=== PATIENT | male | born 1990 | race Two or more races ===

== ENCOUNTER → 2017-07-18 | Outpatient (REF) | payer OTHER | LOC: M LAB REF 13:12 | PROVIDERS: ATTEND Physician Assistant | DX: J02.9 Acute pharyngitis, unspecified (principal) ==

== ENCOUNTER → 2017-07-24 | Outpatient (REF) | payer OTHER | LOC: M LAB REF 18:52 | PROVIDERS: ATTEND Physician Assistant | DX: J02.9 Acute pharyngitis, unspecified (principal) ==

== ENCOUNTER 2018-10-05 20:02 | Inpatient (IN) | payer MEDICAID, OTHER ==
[2018-10-05 20:45] LABS: HEMOGLOBIN 14.4 g/dl (13.5-17.5); MEAN CORPUSCULAR HEMOGLOBIN 26.3 pg (27.0-33.0); MEAN CORPUSCULAR VOLUME 82.3 fl (80.0-96.0); PLATELET COUNT, AUTOMATED 209 10^3/uL (150-450); RED BLOOD COUNT 5.47 10^6/uL (4.30-6.10); RED CELL DISTRIBUTION WIDTH 12.5 % (11.5-14.5); WHITE BLOOD COUNT 9.7 10^3/uL (4.0-10.0)
[2018-10-05 21:14] LABS: ACETAMINOPHEN LEVEL < 2.0 UG/ML (10.0-30.0); ALBUMIN 4.2 GM/DL (3.2-5.2); ALKALINE PHOSPHATASE 79 U/L (45-117); ALT/SGPT 22 U/L (12-78); ANION GAP 7 MEQ/L (8-16); AST/SGOT 19 U/L (7-37); BILIRUBIN,DIRECT 0.1 MG/DL (0.0-0.2); BILIRUBIN,TOTAL 0.3 MG/DL (0.2-1.0); BLOOD UREA NITROGEN 15 MG/DL (7-18); CALCIUM LEVEL 8.8 MG/DL (8.5-10.1); CARBON DIOXIDE LEVEL 29 MEQ/L (21-32); CHLORIDE LEVEL 105 MEQ/L (98-107); ETHYL ALCOHOL (ETHANOL) 0.004 % (0.000-0.010); GLOMERULAR FILTRATION RATE > 60.0 (>60); GLUCOSE, FASTING 79 MG/DL (70-100); POTASSIUM SERUM 4.1 MEQ/L (3.5-5.1); SALICYLATE LEVEL 3.3 MG/DL (5.0-30.0); SODIUM LEVEL 141 MEQ/L (136-145); THYROID STIMULATING HORMONE 0.727 uIU/ML (0.358-3.740); TOTAL PROTEIN 7.7 GM/DL (6.4-8.2)
[2018-10-05 21:16] LABS: AMPHETAMINES LEVEL URINE NEGATIVE (NEGATIVE); BARBITURATES URINE NEGATIVE (NEGATIVE); BENZODIAZEPINES URINE NEGATIVE (NEGATIVE); CANNABINOIDS URINE POSITIVE (NEGATIVE); COCAINE METABOLITE URINE NEGATIVE (NEGATIVE); METHADONE URINE NEGATIVE (NEGATIVE); OPIATES URINE NEGATIVE (NEGATIVE); PHENCYCLIDINE URINE NEGATIVE (NEGATIVE)
[2018-10-05] MEDS ORDERED: ACETAMINOPHEN TAB 650MG DOSE (2X325MG) PO (22:30)
[2018-10-05] MEDS ORDERED: MAALOX 30 ML SUSP *UDC PO (22:30)
[2018-10-05] MEDS ORDERED: MOM 30ML SUSPENSION UDC PO (22:30)
[2018-10-06] MEDS: traZODone 50 MG TAB PO ×2 (00:50→21:18)
[2018-10-06] MEDS: buPROPion **XL** TABLET 150MG (WELLBUTRIN XL) PO (12:32)
[2018-10-06] MEDS: GABAPENTIN 100 MG CAP PO ×2 (15:30→21:18)
[2018-10-06] MEDS: DIVALPROEX 500MG *ER* TAB PO (21:18)
[2018-10-07] MEDS: GABAPENTIN 100 MG CAP PO ×3 (08:15→21:07)
[2018-10-07] MEDS: buPROPion **XL** TABLET 150MG (WELLBUTRIN XL) PO (08:16)
[2018-10-07] MEDS: diphenhydrAMINE CREAM 30GM TOP (10:04)
[2018-10-07] MEDS: DIVALPROEX 250MG *ER* TAB PO (21:07)
[2018-10-07] MEDS: MIRTAZAPINE 15 MG TAB PO (21:08)
[2018-10-08] MEDS: buPROPion (WELLBUTRIN SR) 100 MG SR TAB PO (08:54)
[2018-10-08] MEDS: buPROPion **XL** TABLET 150MG (WELLBUTRIN XL) PO (08:54)
[2018-10-08] MEDS: DIVALPROEX 250MG *ER* TAB PO ×2 (08:54→20:30)
[2018-10-08] MEDS: GABAPENTIN 100 MG CAP PO ×3 (08:54→20:30)
[2018-10-08] MEDS: diphenhydrAMINE CREAM 30GM TOP ×2 (08:56→20:32)
[2018-10-08] MEDS: MIRTAZAPINE 15 MG TAB PO (20:30)
[2018-10-09] MEDS: buPROPion **XL** TABLET 150MG (WELLBUTRIN XL) PO (08:35)
[2018-10-09] MEDS: buPROPion (WELLBUTRIN SR) 100 MG SR TAB PO (08:35)
[2018-10-09] MEDS: GABAPENTIN 100 MG CAP PO ×3 (08:35→20:22)
[2018-10-09] MEDS: DIVALPROEX 250MG *ER* TAB PO ×2 (08:35→20:25)
[2018-10-09] MEDS: diphenhydrAMINE CREAM 30GM TOP ×2 (08:37→20:25)
[2018-10-09] MEDS: MIRTAZAPINE 15 MG TAB PO (20:25)
[2018-10-10] MEDS: buPROPion (WELLBUTRIN SR) 100 MG SR TAB PO (08:12)
[2018-10-10] MEDS: DIVALPROEX 250MG *ER* TAB PO ×2 (08:12→20:28)
[2018-10-10] MEDS: buPROPion **XL** TABLET 150MG (WELLBUTRIN XL) PO (08:12)
[2018-10-10] MEDS: GABAPENTIN 100 MG CAP PO ×3 (08:12→20:28)
[2018-10-10] MEDS: diphenhydrAMINE CREAM 30GM TOP ×2 (08:13→20:30)
[2018-10-10] MEDS: QUEtiapine FUMARATE 50 MG TAB PO (12:55)
[2018-10-10] MEDS: MIRTAZAPINE 15 MG TAB PO (20:28)
[2018-10-11] MEDS: GABAPENTIN 100 MG CAP PO ×3 (08:51→20:07)
[2018-10-11] MEDS: buPROPion (WELLBUTRIN SR) 100 MG SR TAB PO (08:52)
[2018-10-11] MEDS: DIVALPROEX 250MG *ER* TAB PO ×2 (08:52→20:07)
[2018-10-11] MEDS: buPROPion **XL** TABLET 150MG (WELLBUTRIN XL) PO (08:52)
[2018-10-11] MEDS: diphenhydrAMINE CREAM 30GM TOP ×2 (08:53→20:07)
[2018-10-11] MEDS ORDERED: PILL CRUSHER/CUTTER 1 EACH XX (13:30)
[2018-10-11] MEDS: MIRTAZAPINE 15 MG TAB PO (20:07)
[2018-10-11] MEDS: LORazepam 1 MG TAB PO (21:53)
[2018-10-12] MEDS: buPROPion **XL** TABLET 150MG (WELLBUTRIN XL) PO (08:21)
[2018-10-12] MEDS: GABAPENTIN 100 MG CAP PO ×3 (08:21→20:29)
[2018-10-12] MEDS: buPROPion (WELLBUTRIN SR) 100 MG SR TAB PO (08:21)
[2018-10-12] MEDS: MIRTAZAPINE 15 MG TAB PO (20:29)
[2018-10-13] MEDS: GABAPENTIN 100 MG CAP PO (08:44)
[2018-10-13] MEDS: buPROPion **XL** TABLET 150MG (WELLBUTRIN XL) PO (08:44)
[2018-10-13] MEDS: buPROPion (WELLBUTRIN SR) 100 MG SR TAB PO (08:44)
== END 2018-10-13 11:10 | disposition home or self-care (01) | DRG 753 ==
LOC: M PSY 23:51 → M ED 20:02 → M ED INP 22:16
DX: F31.9 Bipolar disorder, unspecified (principal); R45.851 Suicidal ideations; F41.1 Generalized anxiety disorder; L25.9 Unspecified contact dermatitis, unspecified cause

== ENCOUNTER → 2018-11-02 | Outpatient (REF) | payer MEDICAID ==
[~2018-11-02] MED LIST: ABIL20TA5 PO; ARIP5TA PO; BENA25CA4 PO; BUPR10TASR PO; BUPR150T3 PO; DIPHCR TOP; GABA-1171 PO; MIRT15TA3 PO
[2018-11-02 11:47] LABS: BASO % 0.3 % (0.0-1.0); EOS # 0.3 10^3/uL (0.0-0.50); EOS % 3.5 % (0.0-3.0); HEMATOCRIT 45.6 % (42.0-52.0); HEMOGLOBIN 14.4 g/dl (13.5-17.5); LYMPH # 2.5 10^3/uL (1.5-6.5); LYMPH % 32.8 % (24.0-44.0); MEAN CORPUSCULAR HEMOGLOBIN 26.6 pg (27.0-33.0); MEAN CORPUSCULAR HGB CONC 31.6 g/dl (32.0-36.5); MEAN CORPUSCULAR VOLUME 84.3 fl (80.0-96.0); MONO # 0.7 10^3/uL (0.0-0.8); MONO % 9.4 % (0.0-5.0); NEUTROPHILS # 4.1 10^3/uL (1.8-7.7); NEUTROPHILS % 53.7 % (36.0-66.0); PLATELET COUNT, AUTOMATED 218 10^3/uL (150-450); RED BLOOD COUNT 5.41 10^6/uL (4.30-6.10); WHITE BLOOD COUNT 7.6 10^3/uL (4.0-10.0)
[2018-11-02 12:14] LABS: ALBUMIN 3.7 GM/DL (3.2-5.2); ALT/SGPT 26 U/L (12-78); BILIRUBIN,TOTAL 0.3 MG/DL (0.2-1.0); BLOOD UREA NITROGEN 15 MG/DL (7-18); CALCIUM LEVEL 8.6 MG/DL (8.5-10.1); CARBON DIOXIDE LEVEL 28 MEQ/L (21-32); CHLORIDE LEVEL 104 MEQ/L (98-107); CHOLESTEROL LEVEL 194 MG/DL (<200); CHOLESTEROL RISK RATIO 2.939 (<5); CREATININE FOR GFR 1.21 MG/DL (0.70-1.30); GLOMERULAR FILTRATION RATE > 60.0 (>60); GLUCOSE, FASTING 93 MG/DL (70-100); HDL CHOLESTEROL 66 MG/DL (>40); LDL CHOLESTEROL 112 MG/DL (<100); NON-HDL-C 128 MG/DL; POTASSIUM SERUM 4.1 MEQ/L (3.5-5.1); SODIUM LEVEL 140 MEQ/L (136-145); TOTAL 25(OH) VITAMIN D 24.5 NG/ML (30.0-100.0); TOTAL PROTEIN 7.9 GM/DL (6.4-8.2); TRIGLYCERIDES LEVEL 78 MG/DL (<150)
[2018-11-02 13:56] LABS: HEMOGLOBIN A1c 5.6 %
== END ==
LOC: M LAB REF 11:32
PROVIDERS: ATTEND Nurse Practitioner Family
DX: Z13.9 Encounter for screening, unspecified (principal)

== ENCOUNTER → 2018-11-21 | Outpatient (CLI) | payer OTHER ==
[2018-11-21 09:11] LABS: CHOLESTEROL RISK RATIO 2.208 (<5)
== END ==
LOC: M LAB 08:16
PROVIDERS: ATTEND Nurse Practitioner Psychiatric/Mental Health
DX: F31.9 Bipolar disorder, unspecified (principal); Z79.899 Other long term (current) drug therapy

== ENCOUNTER → 2024-08-01 | Outpatient (REF) ==
[~2024-08-01] MED LIST changes: +ARIP1TAB6 PO; -ARIP5TA PO; +BUPR150T12 PO; -BUPR150T3 PO
== END ==
LOC: M EMP 09:17
PROVIDERS: ATTEND Family Medicine
DX: Z11.52 Encounter for screening for COVID-19 (principal)

== ENCOUNTER → 2024-08-22 | Outpatient (REF) | LOC: M EMP 08:24 | PROVIDERS: ATTEND Family Medicine | DX: Z11.52 Encounter for screening for COVID-19 (principal) ==

== ENCOUNTER 2024-09-11 09:17 | Emergency (ER) | payer OTHER, SELFPAY ==
[~2024-09-11] VITALS: Ht 185.4 cm; Wt 78.5 kg
[2024-09-11] MEDS ORDERED: AMOX875T2 PO (11:28)
[2024-09-11] MEDS: KETOROLAC 30 MG/ML 1ML VIAL IM ONE (11:50)
[2024-09-11 11:58] VITALS: BP 144/99; TEMP 98.6; O2SAT 100
== END 2024-09-11 12:24 | disposition home or self-care (01) ==
LOC: M ED 09:17
DX: K04.7 Periapical abscess without sinus (principal); Z79.2 Long term (current) use of antibiotics
CPT/HCPCS: 96372; 99283; J1885

== ENCOUNTER 2024-12-11 22:41 | Emergency (ER) | payer BC, SELFPAY ==
[~2024-12-11] VITALS: Ht 182.9 cm; Wt 81.3 kg
[~2024-12-11 22:41] MED LIST changes: +AMOX875T2 PO
[2024-12-12 03:05] LABS: BASO % 0.3 % (0.0-1.0); EOS % 0.5 % (0.0-3.0); HEMATOCRIT 40.1 % (42.0-52.0); LYMPH # 1.8 10^3/uL (1.5-5.0); LYMPH % 23.9 % (24.0-44.0); MEAN CORPUSCULAR HEMOGLOBIN 26.9 pg (27.0-33.0); MEAN CORPUSCULAR HGB CONC 32.4 g/dl (32.0-36.5); MONO # 0.5 10^3/uL (0.0-0.8); MONO % 6.8 % (2.0-8.0); NEUTROPHILS # 5.2 10^3/uL (1.5-8.5); NEUTROPHILS % 68.2 % (36.0-66.0); PLATELET COUNT, AUTOMATED 232 10^3/uL (150-450); RED BLOOD COUNT 4.83 10^6/uL (4.30-6.10); WHITE BLOOD COUNT 7.7 10^3/uL (4.0-10.0)
[2024-12-12 03:45] LABS: CK-MB VALUE MASS < 1.0 NG/ML (<3.6)
[2024-12-12 03:46] LABS: BLOOD UREA NITROGEN 12 MG/DL (9-23); CALCIUM LEVEL 8.5 MG/DL (8.5-10.1); CARBON DIOXIDE LEVEL 25 MMOL/L (20-31); CHLORIDE LEVEL 109 MMOL/L (98-107); CPK CREATINE PHOSPHOKINASE 120 U/L (46-171); CREATININE FOR GFR 0.74 MG/DL (0.70-1.30); GLOMERULAR FILTRATION RATE > 60.0 (>60); GLUCOSE, FASTING 100 MG/DL (60-100); MB/CK RELATIVE INDEX 0.83 (< OR =4); POTASSIUM SERUM 4.2 MMOL/L (3.5-5.1); SODIUM LEVEL 142 MMOL/L (136-145)
[2024-12-12 03:48] LABS: THYROID STIMULATING HORMONE 0.326 uIU/ML (0.55-4.78)
[2024-12-12 04:58] LABS: CK-MB VALUE MASS < 1.0 NG/ML (<3.6)
[2024-12-12 04:59] LABS: CPK CREATINE PHOSPHOKINASE 114 U/L (46-171); MB/CK RELATIVE INDEX 0.87 (< OR =4)
[2024-12-12 05:15] VITALS: BP 128/93
[2024-12-12 05:20] VITALS: TEMP 97.8; O2SAT 100
== END 2024-12-12 05:20 | disposition home or self-care (01) ==
LOC: M ED 22:41
DX: R55 Syncope and collapse (principal); E04.0 Nontoxic diffuse goiter; F17.290 Nicotine dependence, other tobacco product, uncomplicated

== ENCOUNTER → 2025-01-16 | Outpatient (REF) | LOC: M EMP 10:31 | PROVIDERS: ATTEND Family Medicine | DX: Z11.52 Encounter for screening for COVID-19 (principal) ==

== ENCOUNTER 2025-04-04 02:07 | Emergency (ER) | payer BC ==
[~2025-04-04] VITALS: Ht 185.4 cm; Wt 83.1 kg
[2025-04-04 02:10] VITALS: TEMP 97.3
[2025-04-04 04:25] VITALS: BP 127/78; O2SAT 99
== END 2025-04-04 04:27 | disposition home or self-care (01) ==
LOC: M ED 02:07
DX: S60.212A Contusion of left wrist, initial encounter (principal); W22.8XXA Striking against or struck by other objects, initial encounter; Y92.129 Unspecified place in nursing home as the place of occurrence of the external cause; Y93.89 Activity, other specified; Y99.0 Civilian activity done for income or pay; F17.290 Nicotine dependence, other tobacco product, uncomplicated

== ENCOUNTER 2025-06-11 18:46 | Emergency (ER) | payer BC ==
[~2025-06-11] VITALS: Ht 185.4 cm; Wt 84.6 kg
[2025-06-11 20:29] LABS: BASO # 0.0 10^3/uL (0.0-0.2); BASO % 0.5 % (0.0-1.0); EOS # 0.1 10^3/uL (0.0-0.5); EOS % 1.9 % (0.0-3.0); LYMPH # 2.6 10^3/uL (1.5-5.0); LYMPH % 44.4 % (24.0-44.0); MONO # 0.6 10^3/uL (0.0-0.8); MONO % 9.7 % (2.0-8.0); NEUTROPHILS # 2.6 10^3/uL (1.5-8.5); NEUTROPHILS % 43.3 % (36.0-66.0); PLATELET COUNT, AUTOMATED 228 10^3/uL (150-450)
[2025-06-11 20:59] LABS: CK-MB VALUE MASS 1.3 NG/ML (<3.6)
[2025-06-11 21:00] LABS: CPK CREATINE PHOSPHOKINASE 215 U/L (46-171); MB/CK RELATIVE INDEX 0.60 (< OR =4)
[2025-06-11] MEDS: NS (Normal Saline) 0.9% 1,000 ML IV ONE (21:00)
[2025-06-11 21:01] LABS: FREE T4 1.43 NG/DL (0.89-1.76); THYROXINE (T4) 6.7 UG/DL (4.5-10.9)
[2025-06-11 21:05] LABS: ALT/SGPT 17 U/L (7.0-40); AST/SGOT 20 U/L (<34); CALCIUM LEVEL 9.0 MG/DL (8.5-10.1); CARBON DIOXIDE LEVEL 27 MMOL/L (20-31); CHLORIDE LEVEL 106 MMOL/L (98-107); CREATININE FOR GFR 0.95 MG/DL (0.70-1.30); GLOMERULAR FILTRATION RATE > 90.0 (>60); MAGNESIUM LEVEL 2.2 MG/DL (1.8-2.4); POTASSIUM SERUM 3.9 MMOL/L (3.5-5.1); SODIUM LEVEL 144 MMOL/L (136-145)
[2025-06-11 21:53] LABS: T UPTAKE 49.7 % (22.5-37.0)
[2025-06-12 00:16] VITALS: BP 121/82; TEMP 96; O2SAT 99
== END 2025-06-12 00:22 | disposition home or self-care (01) ==
LOC: M ED 18:46
DX: E86.0 Dehydration (principal); R55 Syncope and collapse; F17.290 Nicotine dependence, other tobacco product, uncomplicated; F12.10 Cannabis abuse, uncomplicated

== ENCOUNTER 2025-07-27 22:17 | Emergency (ER) | payer BC ==
[~2025-07-27] VITALS: Ht 185.4 cm; Wt 86.4 kg
[2025-07-27 22:33] VITALS: TEMP 98.6
[2025-07-27 23:02] LABS: PLATELET COUNT, AUTOMATED 243 10^3/uL (150-450)
[2025-07-27] MEDS: NS (Normal Saline) 0.9% 1,000 ML IV ONE (23:12)
[2025-07-27 23:22] LABS: ETHYL ALCOHOL (ETHANOL) 0.032 % (0.000-0.010)
[2025-07-27 23:24] LABS: CALCIUM LEVEL 9.1 MG/DL (8.5-10.1); CARBON DIOXIDE LEVEL 22 MMOL/L (20-31); CHLORIDE LEVEL 109 MMOL/L (98-107); CREATININE FOR GFR 1.02 MG/DL (0.70-1.30); GLOMERULAR FILTRATION RATE > 90.0 (>60); MAGNESIUM LEVEL 2.0 MG/DL (1.8-2.4); PHOSPHORUS LEVEL 3.6 MG/DL (2.5-4.9); POTASSIUM SERUM 3.8 MMOL/L (3.5-5.1); SODIUM LEVEL 144 MMOL/L (136-145)
[2025-07-27] MEDS: LIDOCAINE 2% MDV 20 ML VIAL SC ONE (23:40)
[2025-07-28 02:30] VITALS: BP 117/82; O2SAT 98
== END 2025-07-28 02:39 | disposition home or self-care (01) ==
LOC: M ED 22:17
DX: R55 Syncope and collapse (principal); S43.132A Dislocation of left acromioclavicular joint, greater than 200% displacement, initial encounter; S01.81XA Laceration without foreign body of other part of head, initial encounter; Y92.9 Unspecified place or not applicable; Y93.9 Activity, unspecified; Y99.9 Unspecified external cause status; I49.3 Ventricular premature depolarization; F17.290 Nicotine dependence, other tobacco product, uncomplicated; F12.10 Cannabis abuse, uncomplicated; F10.10 Alcohol abuse, uncomplicated

== ENCOUNTER → 2025-08-01 | Outpatient (REF) | payer BC ==
[2025-08-01 19:13] LABS: FREE T4 1.69 NG/DL (0.89-1.76)
== END ==
LOC: M LAB REF 14:13
PROVIDERS: ATTEND Family Medicine Addiction Medicine
DX: R55 Syncope and collapse (principal)

== ENCOUNTER → 2025-08-02 | Outpatient (CLI) | payer BC | LOC: M SOG 11:32 | PROVIDERS: ATTEND Orthopaedic Surgery | DX: M25.512 Pain in left shoulder (principal) ==

== ENCOUNTER → 2025-08-10 | Outpatient (CLI) | payer BC | LOC: M EKG 09:30 | PROVIDERS: ATTEND Family Medicine Addiction Medicine | DX: R55 Syncope and collapse (principal) ==

== ENCOUNTER → 2025-10-02 | Outpatient (REF) | LOC: M EMP 08:15 | PROVIDERS: ATTEND Family Medicine | DX: Z01.89 Encounter for other specified special examinations (principal) ==